=== PATIENT | male | born 1995 | race Caucasian/White ===

== ENCOUNTER 2020-07-28 20:18 | Emergency (ER) | payer SELFPAY ==
[~2020-07-28] VITALS: Ht 177.8 cm; Wt 102.1 kg
[~2020-07-28 20:18] MED LIST: ALBUTEROL SULF8.5 GM INH; AZITHROMYCIN250 MG ORAL
[2020-07-28 20:30] VITALS: BP 122/83
[2020-07-28] MEDS ORDERED: HYDROCORTISONE28 G2 TP (20:32)
[2020-07-28] MEDS ORDERED: BENADRYL CRE1 APPLIC TOPIC (20:32)
[2020-07-28] MEDS ORDERED: BENADRYL25 MG ORAL (20:32)
--- NOTE | 2020-07-28 20:32 | Emergency Room Report ---
History of Present Illness General Chief Complaint: Skin Rash/Abscess Source: Patient Present Illness HPI 24-year-old male presents with left arm itching, no aggravating alleviating factor severity is moderate, constant patient reports having a bite to the area he woke up this morning with welt-like lesions on his left arm Allergies: Coded Allergies: No Known Allergies (Unverified , 11/11/15) COVID-19 Screening Contact w/high risk pt: No Experienced COVID-19 symptoms?: No COVID-19 Testing performed NEUROLOGY STROKE PHYSICIAN: No Patient History Past Medical History: see triage record Social History: Reports: smoking Reviewed Nursing Documentation: PMH: Agreed; PSxH: Agreed Nursing Documentation-PMH Past Medical History: No Stated History Review of Systems All Other Systems: negative except mentioned in HPI Physical Exam Vital Signs Date Time Temp Pulse Resp B/P (MAP) Pulse Ox O2 Delivery O2 Flow Rate FiO2 07/28/20 20:21 98.1 88 18 122/83 (96) 99 Room Air General Appearance: well appearing, no apparent distress Head: normocephalic, atraumatic ENT: hearing grossly normal, normal voice Neck: full range of motion, supple Respiratory: no respiratory distress, speaking full sentences Musculoskeletal: gait/station normal Neurologic: alert, normal gait Psychiatric: mood/affect normal Skin: no rash, rash - Left upper extremity: 2 urticarial lesions with punctate power in the middle left upper arm Medical Decision Making Diagnostic Impression: Primary Impression: Insect bite Qualified Codes: S40.862A - Insect bite (nonvenomous) of left upper arm, initial encounter; W57.XXXA - Bitten or stung by nonvenomous insect and other nonvenomous arthropods, initial encounter ER Course 24-year-old male presents with insect bite to the left upper arm, no indications for antibiotics will provide patient with hydrocortisone, Benadryl cream Disposition home with return precautions counseled patient to look out for infection Last Vital Signs Date Time Temp Pulse Resp B/P (MAP) Pulse Ox O2 Delivery O2 Flow Rate FiO2 07/28/20 20:21 98.1 88 18 122/83 (96) 99 Room Air Disposition: HOME, SELF-CARE Condition: Stable Scripts Diphenhydramine Hcl* (BENADRYL*) 25 Mg Capsule 25 MG ORAL Q6H PRN for Itching, #30 CAP Prov: Marlo Fonseca MD 07/28/20 Diphenhydramine HCl/Zinc Acet (Benadryl Itch Stopping Crm) 28.3 Gm Cream..g. 1 APPLIC TOPIC DAILY PRN for Itching, #28.3 APPLIC Prov: Marlo Fonseca MD 07/28/20 Hydrocortisone 1% Oint (Hydrocortisone 1% Oint*) Y Oint 28 GM TP BID, #28 GM Prov: Marlo Fonseca MD 07/28/20 Referrals: [facility]. [facility] Patient Instructions: Insect Bite, [id number] Additional Instructions: The patient was provided with discharge instructions, notified to follow-up with a primary care doctor and or specialist in the next 24-48 hours, and to return to the ED if they have worsening of their symptoms. Please note that this report is being documented using DRAGON technology. This can lead to erroneous entry secondary to incorrect interpretation by the dictating instrument. Marlo Fonseca MD Jul 28, 2020 20:32
[2020-07-28 20:35] VITALS: BP 122/83
== END 2020-07-28 20:35 | disposition home or self-care (01) ==
LOC: EMR 20:28
DX: S40.862A Insect bite (nonvenomous) of left upper arm, initial encounter (principal); W57.XXXA Bitten or stung by nonvenomous insect and other nonvenomous arthropods, initial encounter; L50.9 Urticaria, unspecified
CPT/HCPCS: 99281